=== PATIENT | female | born 1965 | race Caucasian/White ===

== ENCOUNTER 2023-10-20 16:42 | Emergency (ER) | payer OTHER, SELFPAY ==
[2023-10-20 16:47] VITALS: BP 127/91; PULSE 76; TEMP 36.8; O2SAT 99; BMI 23.4
--- NOTE | 2023-10-20 16:52 | XR_ITS ---
The [address] [address] Patient Name: CORINA CAROLINA MRN: [id number] date: 1965 Sex: F Assigned Patient Location: ED.MAIN Current Patient Location: ED.MAIN Accession/Order Number: [id number] Exam Date: 10/20/2023 16:50 Report Date: 10/20/2023 17:15 At the request of: GABRIEL WEN Procedure: XR hand LT min 3V Exam: Radiographs: XR hand LT min 3V Reason for exam: injury Comparison: None XR/XR hand LT min 3V IMPRESSION: Degenerative changes in the left hand and wrist, most evident at the multangular joints. Remainder of the left hand radiographs is unremarkable. Electronically authenticated by: SHAHANA CASTILLO Date: 10/20/2023 17:15
--- NOTE | 2023-10-20 17:01 | ED.UPPEXIN1 ---
HPI HPI - Extremity Injury (Upper) General Chief Complaint: Extremity Injury, Upper Stated Complaint: UPPER EXTREMITY INJURY-WORK Time Seen by Provider: 10/20/23 16:47 Source: patient Mode of arrival: walk-in Limitations: no limitations History of Present Illness HPI narrative: This is a 57-year-old with injury to her left hand. She is left-hand dominant. Several days ago she fell. She has not developed swelling of her left ring and middle finger and she cannot get her rings off. When she was seen by the nursing staff there is substantial swelling and she agreed to have the rings removed which was accomplished without problems. She still has some pain and discomfort much much of the discomfort however is alleviated since the rings came off. X-rays were ordered and are pending at the time of this note Related Data Home Medications ?Medication ?Instructions ?Recorded ?Confirmed levothyroxine 112 mcg tablet 112 mcg PO DAILY 10/20/23 10/20/23 (Euthyrox) Allergies Allergy/AdvReac Type Severity Reaction Status Date / Time No Known Drug Allergies Allergy Verified 10/20/23 16:47 Opioid HPI Opioid Management Most Recent Pain and Opioid Data: No Data to Display Exam Narrative Exam Narrative: Awake alert pleasant vital signs are stable. As I said there rings had been removed at the patient's request. Examination there is ecchymosis and swelling over the metacarpophalangeal joint of her left ring and middle finger. Capillary fill is normal there is no vascular insufficiency or cyanosis. She has mild restriction of handgrip finger range of motion testing with some discomfort. There is no rotational deformity. Constitutional Vital Signs, click to edit/add: Last Vital Signs Temp 98.3 F 10/20/23 16:47 Pulse 76 10/20/23 16:47 Resp 18 10/20/23 16:47 BP 127/91 10/20/23 16:47 Pulse Ox 99 10/20/23 16:47 O2 Del Method Room Air 10/20/23 16:47 Course Vital Signs Vital signs: Vital Signs Temperature 98.3 F 10/20/23 16:47 Pulse Rate 76 10/20/23 16:47 Respiratory Rate 18 10/20/23 16:47 Blood Pressure 127/91 10/20/23 16:47 Pulse Oximetry 99 10/20/23 16:47 Oxygen Delivery Method Room Air 04/04/24 16:47 Temperature 98.3 F 10/20/23 16:47 Pulse Rate 76 10/20/23 16:47 Respiratory Rate 18 10/20/23 16:47 Blood Pressure 127/91 10/20/23 16:47 Pulse Oximetry 99 10/20/23 16:47 Oxygen Delivery Method Room Air 10/20/23 16:47 MDM - Extremity Injury (Upper) MDM Narrative Medical decision making narrative: X-rays were reviewed by myself and I do not see any obvious fracture. I believe some ice and rest should be fine and I do not believe she has need for immobilization. Will contact her with the definitive and final radiologist report Discharge Plan Discharge Stand Alone Forms: Portal Instructions Chief Complaint: Extremity Injury, Upper Clinical Impression: Contusion of hand, left Patient Disposition: Home, Self-Care Time of Disposition Decision: 17:06 Prescriptions / Home Meds: No Action levothyroxine [Euthyrox] 112 mcg tablet 112 mcg PO DAILY Print Language: [place] Additional Instructions: Ice and limited use. Then use warm compresses starting tomorrow and begin stretching the hand Referrals: Physician,Non-Staff, MD [Primary Care Provider] - 1 week
== END 2023-10-20 17:26 | disposition home or self-care (01) ==
PROVIDERS: Emergency Provider Emergency Medicine Emergency Medical Services; PCP Family Medicine
DX: S60.222A Contusion of left hand, initial encounter (principal); W19.XXXA Unspecified fall, initial encounter
CPT/HCPCS: 73130; 99283

== ENCOUNTER 2023-10-27 17:16 | Outpatient (OUT) | payer OTHER, SELFPAY ==
--- NOTE | 2023-10-27 | XR_ITS ---
The [address] [address] Patient Name: CORINA CAROLINA MRN: [id number] date: 1965 Sex: F Assigned Patient Location: RAD Current Patient Location: [facility] Accession/Order Number: [id number] Exam Date: 10/27/2023 17:25 Report Date: 10/27/2023 18:04 At the request of: FLAVIA BIRD Procedure: XR finger LT min 2V IMAGES REVIEWED: XR finger LT min 2V COMPARISON: 10/20/2023. CLINICAL INDICATION: Left 4th finger contusion FINDINGS/IMPRESSION: No evidence of acute osseous abnormality of the left fourth digit. Severe osteoarthritis triscaphe joint again seen. Electronically authenticated by: ZAFAR OLIVA Date: 10/27/2023 18:04
== END 2023-10-27 17:17 | disposition home or self-care (01) ==
PROVIDERS: PCP Family Medicine; Visit Provider Nurse Practitioner Family
DX: S60.042A Contusion of left ring finger without damage to nail, initial encounter (principal)
CPT/HCPCS: 73140

== ENCOUNTER 2023-12-13 06:44 | Outpatient (OUT) | payer OTHER, SELFPAY ==
--- NOTE | 2023-12-13 06:47 | MR_ITS ---
The [address] [address] Patient Name: CORINA CAROLINA MRN: [facility]:[id number] date: 1965 Sex: F Assigned Patient Location: MRI Current Patient Location: MRI Accession/Order Number: [id number] Exam Date: 12/13/2023 06:55 Report Date: 12/13/2023 17:08 At the request of: FLAVIA BIRD Procedure: MR hand LT wo con EXAM: MR hand LT wo con HISTORY: Contusion Left S60.222A Ring Finger COMPARISON: 10/27/2023 TECHNIQUE: MRI images obtained with multiple sequences. Noncontrast MRI of the left hand. FINDINGS: No acute fracture or dislocation. Nonspecific bone marrow edema of the fourth proximal phalanx, may represent contusion. (Sagittal STIR image 6). (Coronal STIR image 8) Visualized portions of the extensor and flexor tendons are intact. No significant subcutaneous soft tissue edema. The collateral ligaments of the third, fourth and fifth distal and proximal interphalangeal joints are intact. MR/MR hand LT wo con IMPRESSION: 1. No acute fracture. No dislocation. 2. Nonspecific mild bone marrow edema of the fourth proximal phalanx, may represent contusion. (Sagittal STIR image 6). 3. Visualized portions of the extensor and flexor tendons are intact. Electronically authenticated by: SWETA ROSADO Date: 12/13/2023 17:08
== END 2023-12-13 06:45 | disposition home or self-care (01) ==
LOC: MRI 06:44
PROVIDERS: PCP Family Medicine; Visit Provider Nurse Practitioner Family
DX: S60.222A Contusion of left hand, initial encounter (principal)
CPT/HCPCS: 73218